=== PATIENT | male | born 1960 | race Caucasian/White ===

== ENCOUNTER 2023-03-13 12:22 | Emergency (ER) | payer BC ==
[~2023-03-13] VITALS: Ht 182.9 cm; Wt 124.7 kg
[2023-03-13 12:36] VITALS: BP 190/69; PULSE 73; RESP 20; TEMP 98; O2SAT 99
[2023-03-13] MEDS ORDERED: NAPR-1704 PO (14:17)
[2023-03-13] MEDS ORDERED: TAMS0.4C96 PO (14:17)
[2023-03-13 14:29] LABS: APPEARANCE,URINE CLEAR (CLEAR); BILIRUBIN,URINE NEGATIVE (NEGATIVE); BLOOD, URINE 3+ (NEGATIVE); COLOR,URINE YELLOW (YELLOW); LEUKOCYTE ESTERASE ,URINE NEGATIVE (NEGATIVE); NITRITE, URINE POSITIVE (NEGATIVE); PROTEIN,URINE 1+ (NEGATIVE); UGLUCOSE NEGATIVE (NEGATIVE)
[2023-03-13 14:45] LABS: BACTERIA,URINE FEW /HPF (None Seen); SQUAMOUS EPITHELIAL CELL,UR 0-3 (FEW) /LPF (0-3 (FEW)); WBC,URINE 0-5 /HPF (0-5)
== END 2023-03-13 14:23 | disposition home or self-care (01) ==
LOC: MED 12:22
DX: N23 Unspecified renal colic (principal); Z79.899 Other long term (current) drug therapy
CPT/HCPCS: 81001; 99283